=== PATIENT | male | born 1985 | race Caucasian/White ===

== ENCOUNTER 2016-09-14 18:55 | Inpatient (IN) | payer OTHER ==
[2016-09-14 20:38] LABS: ABSOLUTE NEUTROPHIL COUNT 6.3 K/mm3 (1.8-7.7); BASO # 0.1 K/mm3 (0.0-0.2); BASO % 0.6 % (0.2-1.0); EOS # 0.3 (0.0-0.5); EOS % 3.2 % (0.9-2.9); HEMATOCRIT 39.4 % (32.0-52.0); HEMOGLOBIN 13.6 gm/l (14.0-18.0); IMM NEUT% 0.3 % (0-1); LYMPH # 1.9 (1.0-4.8); MEAN CELL VOLUME 81.7 fl (80.0-94.0); MEAN CORPUSCULAR HEMOGLOBIN 28.2 pg (27.0-31.0); MEAN CORPUSCULAR HGB CONC 34.5 g/dl (33.0-37.0); MEAN PLATELET VOLUME 10.2 fl (7.4-10.4); MONO # 0.6 (0.0-0.8); MONO % 6.5 % (4-12); NEUT % 68.4 % (43-75); PLATELET COUNT 208 K/mm3 (130-400); RED CELL DISTRIBUTION WIDTH 12.3 % (11.5-14.5)
[2016-09-14 20:51] LABS: ALB/GLOB RATIO 1.1 (>1.0); ALBUMIN 3.9 gm/dL (3.5-5.7); CALCIUM 9.5 mg/dL (8.6-10.3)
[2016-09-14] MEDS ORDERED: CEFTRIAXONE 2 GRAM DUPLEX 50 ML IV ONE (21:00)
--- NOTE | 2016-09-14 21:03 | RAD ---
Name: CARMELA ALONZO Exam: Right elbow Comparison: None Clinical history: Swelling and pain Findings: 3 views right elbow are submitted. Bone density is normal. Joint spaces are maintained. There is no fracture dislocation periosteal fracture foreign body or joint effusion. There is soft tissue stranding in the medial aspect of the distal upper arm and proximal forearm. Soft tissue air or radiopaque foreign body appreciated. Impression: Medial soft tissue swelling without evidence for soft tissue air, radiopaque foreign body or acute bony abnormality.
[2016-09-14 21:08] LABS: C-REACTIVE PROTEIN 9.9 mg/dl (<1.0)
--- NOTE | 2016-09-14 21:08 | US ---
Name: CARMELA ALONZO Exam: Limited soft tissue ultrasound Comparison: None Clinical history: Soft tissue swelling of the arm. Recent injections. Findings: Ultrasound soft tissues of the medial aspect of the elbow and antecubital fossa was performed. Small amount of edema is identified. There is a 1 cm fluid collection in the antecubital fossa. Small abscess is not excluded. Skin thickening/cellulitis is present. There is occlusive thrombus within the antecubital fossa which extends into the basilic vein above the elbow. Nonocclusive thrombus is noted within the basilic vein extending to the mid forearm. Impression: 1. Deep venous thrombosis. Occlusive thrombus within the basilic vein above the elbow extending to the antecubital fossa. Nonocclusive thrombus extends from the antecubital fossa to the mid forearm in the basilic vein. 2. Skin thickening/cellulitis 3. 1 cm vague fluid collection in the antecubital fossa which could represent focal edema. Small abscess is not excluded. Note: The above report was uploaded to [facility]'s electronic medical records system at 2103 hours.
[2016-09-14] MEDS ORDERED: MENTHOL/CETYLPYRD 1 EACH LOZENGE PO PRN (21:56)
[2016-09-14] MEDS ORDERED: ACETAMINOPHEN 325 MG TABLET PO PRN (21:56)
[2016-09-14] MEDS ORDERED: BLISTEX LIPSTICK 1 EACH TP PRN (21:56)
[2016-09-14] MEDS ORDERED: SODIUM CHLORIDE 0.9% 100 ML IV PRN (21:56)
[2016-09-14] MEDS ORDERED: MAGNESIUM HYDROXIDE 30 ML UDCUP PO PRN (21:56)
[2016-09-14 22:22] VITALS: BMI 28.6
[2016-09-14] MEDS ORDERED: PUMP TUBING ONE (22:34)
[2016-09-14] MEDS ORDERED: NICOTINE 21 MG PATCH 1 EACH TD PRN (22:40)
[2016-09-14] MEDS: VANCOMYCIN HCL 2 G in SODIUM CHLORIDE 0.9% 500 ML IV SCH (22:54)
[2016-09-14] MEDS ORDERED: PROMETHAZINE HCL 25 MG TABLET PO PRN (22:57)
[2016-09-14] MEDS ORDERED: SODIUM CHLORIDE 0.9% 100 ML IV ONE (22:58)
[2016-09-14] MEDS: ENOXAPARIN SODIUM 40 MG/0.4 ML SYRINGE SUB-Q SCH (23:02)
[2016-09-14] MEDS: PANTOPRAZOLE 40 MG TABLET DR PO SCH (23:03)
[2016-09-14] MEDS: NICOTINE POLACRILEX 2 MG LOZENGE PO PRN (23:03)
[2016-09-14] MEDS: METHADONE 10 MG TABLET PO SCH (23:03)
[2016-09-14 23:22] LABS: SPECIFIC GRAVITY 1.025 (1.001-1.030); URINE BILIRUBIN NEGATIVE (NEGATIVE); URINE BLOOD NEGATIVE (NEGATIVE); URINE GLUCOSE (UA) NEGATIVE (NEGATIVE); URINE LEUKOCYTE ESTERASE TRACE (NEGATIVE); URINE NITRITE NEGATIVE (NEGATIVE); URINE PROTEIN NEGATIVE (NEGATIVE); URINE UROBILINOGEN NORMAL (0-1 mg/dl)
[2016-09-14 23:25] LABS: URINE APPEARANCE CLEAR; URINE COLOR DARK YELLOW
[2016-09-14 23:29] LABS: URINE BACTERIA RARE; URINE EPITHELIAL CELLS 0-2 /hpf; URINE RBC 0 /hpf
[2016-09-14] MEDS ORDERED: PROMETHAZINE HCL 12.5 MG in SODIUM CHLORIDE 0.9% 50 ML IM PRN (23:37)
[2016-09-14] MEDS ORDERED: PROMETHAZINE HCL 12.5 MG in SODIUM CHLORIDE 0.9% 50 ML IV PRN (23:39)
[2016-09-15] MEDS: LORAZEPAM 1 MG TABLET PO PRN ×2 (01:03→05:56)
--- NOTE | 2016-09-15 07:01 | HP ---
Jimi Ortega [id number] : 1985 DATE OF ADMISSION: 09/14/2016 IDENTIFICATION: Mr. Ortega is a 31-year-old with no local physician. Dr. Hilton is on unassigned call for the day of admission. CHIEF COMPLAINT: Right arm pain. HISTORY OF PRESENT ILLNESS: Mr. Ortega has been using heroin injected multiple times a day for the last 8 months. Three days ago he injected his right anti-cubital fossa and had sudden onset of swelling, pain, and stiffness in the arm about two hours after giving himself the injection. He continued to have swelling and redness then developed shooting pain and he felt like it was traveling up his arm. He had fever and chills at night. He has not had any previous episodes as severe as this, but has noted small lumps in other injection sites. In the emergency department, he had a ultrasound of the right upper extremity which did show possible small fluid collection and thrombosis in the basilic vein. He was given a dose of ceftriaxone and referred to the hospitalist service. REVIEW OF SYSTEMS: HEENT: Denies headache, lightheadedness, or loss of consciousness. No problems with ears, eyes, nose, or throat. RESPIRATORY: No cough or dyspnea. CARDIAC: No chest pain or palpations. GASTROINTESTINAL: He has had some nausea, which he thinks was "dope sickness". He has had some intermittent abdominal pain after eating meals and reflux symptoms and does suffer from constipation from the heroin. GENITOURINARY: he reports urinary retention and some dysuria or the last few days as well. MUSCULOSKELETAL: He has had some aching joints particularly his knees. CONSTITUTIONAL: Fevers and chills. No weight change. PAST MEDICAL HISTORY: No chronic medical problems just IV drug use. He has had some anger management issues. Two previous visits to [facility] Room for small bone fractures in his right hand from punching stationary objects when he became angered. PAST SURGICAL HISTORY: None. ALLERGIES: MILD ITCHING FROM HYDROCODONE. MEDICATIONS: No current prescription medications. HABITS: He does report using IV heroin approximately one half of an ounce per day in multiple doses. HE has been using a small amount of methamphetamine to help him stay awake. Denies other drugs. Denies alcohol, but does smoke a pack of cigarettes per day and has done so for 20 years. SOCIAL HISTORY: Just moved into an apartment in [place] with a roommate, but now says that he will be changing that living situation may be moving in with his brother. FAMILY HISTORY: Positive for coronary artery disease. PHYSICAL EXAMINATION: GENERAL: This is a pleasant, but mildly agitated 31-year-old. VITAL SIGNS: Temperature 98.7 degrees Fahrenheit, pulse 85, blood pressure 127/92, respiratory rate 20, oxygen saturation is 98% on room air. HEENT: Head is atraumatic. Pupils are dilated, equal, round and reactive. Extraocular muscles intact. Oropharynx is moist. CHEST: Clear to auscultation. HEART: Regular. No murmur appreciated. ABDOMEN: Soft, mild diffuse tenderness, no guarding or rebound. Normal bowel sounds. No organomegaly. EXTREMITIES: No edema in the lower extremities or left arm. He does have mild erythema about the antecubital fossa of the right arm with moderate induration. He is quite stiff at the elbow and does not want to bend the arm. There is no open wound. INTEGUMENT: Does show multiple tattoo's as well. LABORATORIES: White blood cell count 9.2 with 68% neutrophils, hemoglobin and hematocrit 13.6 and 39.4, platelets 208, lactate 1.4, sedimentation rate is elevated at 49, C-reactive protein is elevated at 9.9. Sodium 133, potassium 3.9, chloride 103, CO2 25, BUN 18, creatinine 0.8, glucose 105. Blood culture has been obtained. Urinalysis has been sent, no results available yet. RADIOLOGY: X-ray of the right elbow shows medial soft tissue swelling without air or radioopaque foreign bodies. Ultrasound shows thrombosis in the basilic vein above and below the antecubital fossa. There is overlying skin thickening suggesting cellulitis and a vague possible 1 cm fluid collection in the antecubital fossa, focal edema versus abscess. ASSESSMENT: Mr. Ortega is a 31-year-old intravenous drug user who presents with right basilic vein superficial venous thrombosis as well as presumed bacterial cellulitis and possible abscess without lymphangitis of the right arm. PLAN: 1. Admit to med/surg. 2. Treatment with intravenous vancomycin pending blood culture results and further evaluation. 3. Patient's heroin use was discussed. He does want to quit at this time. We will have social work consultation and initiate methadone at 20 mg by mouth twice daily to help manage his withdraw symptoms. He will need to establish with methadone clinic prior to hospital discharge as I will only prescribe this in a very limited fashion on the hospital for acute withdraw. 4. Full code status. 5. Pantoprazole for acid reflux symptoms. 6. Promethazine as needed for nausea, plan clonidine as needed for hypertension with withdraw and consider Bentyl for abdominal cramping. 7. Follow up on urinalysis given his complaint of dysuria. He may have a urinary tract infection. 8. The superficial thrombosis of the upper extremity does not require anticoagulant treatment, but I will put him on enoxaparin for prevention of further venous thrombosis. JOB: [id number]
[2016-09-15] MEDS: VANCOMYCIN HCL 2 G in SODIUM CHLORIDE 0.9% 500 ML IV SCH ×2 (10:03→22:36)
[2016-09-15] MEDS: METHADONE 10 MG TABLET PO SCH ×2 (10:04→21:01)
[2016-09-15] MEDS: PANTOPRAZOLE 40 MG TABLET DR PO SCH ×2 (10:04→21:01)
[2016-09-15] MEDS: DOCUSATE SODIUM 100 MG CAPSULE PO SCH ×2 (10:04→21:01)
[2016-09-15] MEDS: NICOTINE POLACRILEX 2 MG LOZENGE PO PRN (12:35)
--- NOTE | 2016-09-15 13:58 | PDOC43 ---
- Subjective Chief Complaint: Right arm pain and swelling. Feeling better, able to bend arm well. mild w/d sx with watery eyes, yawning. No major w/d such as abd pain or diarrhea. - Objective Vital Signs Temperature 98.2 F 09/15/16 07:28 Pulse Rate 72 09/15/16 07:28 Respiratory Rate 20 09/15/16 08:00 Blood Pressure 106/74 09/15/16 07:28 O2 Saturation by Pulse Oximetry 94 09/15/16 07:28 Oxygen Delivery Method Room Air Oxygen Flow Rate 0 Intake and Output 09/14/16 09/15/16 09/16/16 06:59 06:59 06:59 Intake Total 838 Output Total 500 Balance 338 General: Alert, Oriented x3, Cooperative, No Acute Distress HEENT: Mucous membr. moist/pink Lungs: Clear to Auscultation Bilaterally Cardiovascular: Regular Rate and Rhythm Abdomen: Soft, Normal Bowel Sounds, No Tenderness, No Masses Extremities: Normal Pulses, Other (right arm swelling reduced and erythema resolved.), No Edema Neurological: Normal Speech Psych/Mental Status: Normal Mood Current Medications: Current meds reviewed in EMR. - Problems: Assessment/Plan (1) Cellulitis and abscess of upper arm and forearm Status: AcuteAssessment/Plan: Presumed bacterial infection/cellulitis present on admit, continue vancomycin pending blood culture result. (2) Superficial venous thrombosis of right arm Status: AcuteAssessment/Plan: Does not require chronic anticoagulation. NSAID treatment. (3) GERD (gastroesophageal reflux disease) Qualifiers: Esophagitis presence: esophagitis presence not specified Qualifier Code : (K21.9) Gastro-esophageal reflux disease without esophagitis Status: ChronicAssessment/Plan: Continue PPI (4) IVDU (intravenous drug user) Status: ChronicAssessment/Plan: Making plan for recovery with social work. Stable on current methadone dose, will need same day f/u to continue prescription upon discharge. (5) Nicotine dependence Qualifiers: Nicotine product type: cigarettes Status: ChronicAssessment/Plan: Cessation counseling, replacement therapy. (6) UTI (urinary tract infection) Qualifiers: Urinary tract infection type: acute cystitis Status: AcuteAssessment/Plan : Present on admit with dysuria, pyuria and presumed bacterial infection, continue ceftriaxone awaiting urine culture results VTE Prophylaxis: enoxaparin
[2016-09-15 18:37] LABS: ABSOLUTE NEUTROPHIL COUNT 6.2 K/mm3 (1.8-7.7); BASO # 0.1 K/mm3 (0.0-0.2); BASO % 0.6 % (0.2-1.0); EOS # 0.2 (0.0-0.5); EOS % 2.7 % (0.9-2.9); HEMATOCRIT 39.5 % (32.0-52.0); HEMOGLOBIN 13.6 gm/l (14.0-18.0); IMM NEUT% 0.5 % (0-1); LYMPH # 1.8 (1.0-4.8); LYMPH % 20.3 % (15-45); MEAN CELL VOLUME 80.8 fl (80.0-94.0); MEAN CORPUSCULAR HEMOGLOBIN 27.8 pg (27.0-31.0); MEAN CORPUSCULAR HGB CONC 34.4 g/dl (33.0-37.0); MEAN PLATELET VOLUME 10.1 fl (7.4-10.4); MONO # 0.5 (0.0-0.8); MONO % 5.9 % (4-12); PLATELET COUNT 226 K/mm3 (130-400)
[2016-09-15] MEDS: CEFTRIAXONE 1 GRAM DUPLEX 1 G in Premix (D5W) 50 ml 1 EACH IV SCH ×2 (21:01→21:50)
[2016-09-15] MEDS: CEFUROXIME AXETIL 500 MG TABLET PO SCH (21:51)
[2016-09-15] MEDS: ENOXAPARIN SODIUM 40 MG/0.4 ML SYRINGE SUB-Q SCH (21:51)
[2016-09-16 08:05] VITALS: BP 118/76
[2016-09-16] MEDS: PANTOPRAZOLE 40 MG TABLET DR PO SCH (08:29)
[2016-09-16] MEDS: DOCUSATE SODIUM 100 MG CAPSULE PO SCH (08:29)
[2016-09-16] MEDS: METHADONE 10 MG TABLET PO SCH (08:29)
[2016-09-16] MEDS: CEFUROXIME AXETIL 500 MG TABLET PO SCH (08:29)
[2016-09-16] MEDS ORDERED: SULFAMETHOXAZOLE 800 MG/TRIMETHOPRIM 160 MG TABLET PO SCH (11:15)
== END 2016-09-16 12:58 | disposition home or self-care (01) | DRG 603 ==
LOC: ED 18:55 → MS 21:20
PROVIDERS: ADMIT Family Medicine; ATTEND Family Medicine
DX: L03.113 Cellulitis of right upper limb (principal); I82.611 Acute embolism and thrombosis of superficial veins of right upper extremity; N39.0 Urinary tract infection, site not specified; F11.10 Opioid abuse, uncomplicated; B96.89 Other specified bacterial agents as the cause of diseases classified elsewhere; F17.210 Nicotine dependence, cigarettes, uncomplicated